=== PATIENT | female | born 1985 | race Caucasian/White ===

== ENCOUNTER 2017-08-15 15:47 | Emergency (ER) | payer BC, OTHER ==
[2017-08-15 16:40] VITALS: BP 149/79
--- NOTE | 2017-08-15 16:41 | ED Physician Documentation ---
Female Urogenital Problems - HISTORIAN Historian: patient, friend - HPI Stated Complaint: abdominal cramping Chief Complaint: Female Urogenital Problems Additional Information: PT HAVING WHAT APPEARS TO BE USUAL MENSES. IT IS HOWEVER 1 WK LATE. SHE ALSO HAD SOME MUCOUS MARY WIPEING WHICH SHE FOUND UNUSUAL. SHE THOUGHT SHE WAS BUT PG TEST WAS NEGATIVE AND SHE IN NOW HAVING WHAT APPEARS NORMAL MENSES. THERE ARE PERHAPS SLIGHTLY GREATER STHAN USUAL CRAMPS Onset: days ago (1) Severity: mild, moderate - Vaginal Bleeding Compared to Menstrual Periods: similiar Where was Test Done: home (NEG) Care: No - Associated Symptoms Urinary Symptoms: denies: blood in urine, frequent urination, discomfort w/ urination Discharge: vaginal discharge (I TIME) - ROS CONST: no problems GI/: denies: nausea, vomiting, decreased appetite CVS/RESP: none EYES/ENT: none NEURO/PSYCH: none MS/SKIN/LYMPH: none - PAST HX Past History: none Surgeries/Procedures: none Allergies/Adverse Reactions: Allergies Allergy/AdvReac Type Severity Reaction Status Date / Time No Known Allergies Allergy Verified 08/15/17 16:11 Home Medications: Ambulatory Orders Medication Instructions Recorded NK [NK] 11/15/12 - SOCIAL HX Smoking History: non-smoker Alcohol Use: none Drug Use: none - FAMILY HX Family History: none - VITAL SIGNS Vital Signs: Vital Signs Temp Pulse Resp BP Pulse Ox 98.8 F 85 18 154/89 98 08/15/17 15:50 08/15/17 15:50 08/15/17 15:50 08/15/17 15:50 08/15/17 15:50 - REVIEWED ASSESSMENTS Nursing Assessment Reviewed: Yes Vitals Reviewed: Yes Female Urogenital Problems - EXAM General Appearance: no acute distress EENT: eye inspection normal Neck: nml inspection Respiratory: no resp. distress, breath sounds nml CVS: reg rate & rhythm Skin: color nml, no rash, warm,dry. No: cyanosis, diaphoresis, pallor Extremities: non-tender, normal range of motion Neuro: oriented X3 Discharge Clincal Impression: DYSMENORRHEA Referrals: Primary Doctor,No [Primary Care Provider] - 2 Days Condition: Good Disposition: 01 HOME, SELF-CARE Decision to Admit: NO Decision Time: 16:44
== END 2017-08-15 16:39 | disposition home or self-care (01) ==
LOC: ED 15:47
DX: N94.6 Dysmenorrhea, unspecified (principal)
CPT/HCPCS: 99283

== ENCOUNTER 2018-08-04 01:03 | Emergency (ER) | payer OTHER ==
[2018-08-04 01:21] VITALS: BP 124/62
--- NOTE | 2018-08-04 01:27 | ED Physician Documentation ---
Foot Injury - HISTORIAN Historian: patient - HPI Stated Complaint: Left foot pain Chief Complaint: Lower Extremity Problem Onset: days ago (4) Where: work Severity: mild Context: other ("stepped wrong" ) Associated Symptoms:: denies: swelling, snapping sensation Modifying Factors:: pain on movement Further Comments: yes (Left foot pain since Tuesday when she "stepped wrong" at work. States this is not a workmans comp injury. She has had progressive pain on the lateral side of the foot since Tuesday. Denies any swelling. She is taking ibuprofen and has some mild help in pain. the pain is a "pain" per her report. She is able to bear weight) - ROS CONST: no problems - PAST HX Past History: none Immunizations: UTD Allergies/Adverse Reactions: Allergies Allergy/AdvReac Type Severity Reaction Status Date / Time No Known Allergies Allergy Verified 08/04/18 01:24 Home Medications: Ambulatory Orders Medication Instructions Recorded NK 08/04/18 - SOCIAL HX Smoking History: cigarettes Alcohol Use: none Drug Use: none - FAMILY HX Family History: none - VITAL SIGNS Vital Signs: Vital Signs Temp Pulse Resp BP Pulse Ox 97.6 F 82 18 124/62 97 08/04/18 01:05 08/04/18 01:05 08/04/18 01:05 08/04/18 01:05 08/04/18 01:05 - REVIEWED ASSESSMENTS Nursing Assessment Reviewed: Yes Vitals Reviewed: Yes ED Results Lab/Radiology - Radiology Radiology Impressions: Left foot, three views History: STEPPED DOWN ONTO LEFT FOOT WRONG 4 DAYS AGO. PAIN ON LATERAL SIDE OF LEFT FOOT. Findings: The osseous structures are intact without acute fracture. There is mil d narrowing of the 1st metatarsophalangeal joint space. There is no focal soft tissue swelling. Impression: 1. No acute osseous abnormality. Electronically signed on Aug 04, 2018 1:37:06 AM CDT by: Anibal Dasilva - Orders Orders: ED Orders Category Date Time Status XRAY FOOT [FOOT 3 VIEWS OR MORE] [RAD] Stat Exams 08/04/18 Ordered Foot Injury Physical Exam - Physical Exam General Appearance: no acute distress, alert Foot: right foot: non-tender, normal inspection, left foot: pain, soft tissue tenderness, bilateral foot: normal range of motion, no evidence of injury, N/A: abrasions/lacerations, bone tenderness, limited range of motion, swelling Ankle: bilateral: non-tender, normal inspection, normal range of motion, no evidence of injury, N/A: abrasions/laceration, bone tenderness, deformity, ecchymosis, joint effusion, limited range of motion, nodules, pain, soft tissue tenderness, swelling, other Gait: normal Neuro: sensation nml, motor nml Vascular: no vascular compromise Tendons: tendon function nml Leg/Knee/Thigh: uninjured above ankle Head/ENT: nml inspection Neck/Back: nml inspection Resp/CVS: chest non-tender, breath sounds nml, heart sounds nml, no resp. distress, lungs clear, reg. rate & rhythm Abdomen: non-tender Discharge Clincal Impression: Left foot pain Referrals: Primary Doctor,No [Primary Care Provider] - 2 Days Additional Instructions: 1. Continue Tylenol and Ibuprofen as directed for pain 2. Follow up with PCP in 2-4 days if no improvement 3. Return to ER for any concerns Condition: Stable Disposition: 01 HOME, SELF-CARE Decision to Admit: NO Date of Decison to Admit: 08/04/18 Decision Time: 01:40
--- NOTE | 2018-08-04 01:58 | Diagnostic Imaging Report ---
EDILSON MONTOYA [facility] [address] [facility] [address] [address] Report Submission Date: Aug 04, 2018 1:37:06 AM CDT Patient Study Name: MELO CHIN Date: Aug 04, 2018 1:20:42 AM CDT Modality Type: DX Gender: F Description: LOWER EXTREMITY : 81 Institution: [facility] Physician: EDILSON MONTOYA Left foot, three views History: STEPPED DOWN ONTO LEFT FOOT WRONG 4 DAYS AGO. PAIN ON LATERAL SIDE OF LEFT FOOT. Findings: The osseous structures are intact without acute fracture. There is mild narrowing of the 1st metatarsophalangeal joint space. There is no focal soft tissue swelling. Impression: 1. No acute osseous abnormality. Electronically signed on Aug 04, 2018 1:37:06 AM CDT by: Anibal BARRERA
== END 2018-08-04 01:45 | disposition home or self-care (01) ==
LOC: ED 01:03
DX: M79.672 Pain in left foot (principal)
CPT/HCPCS: 73630

== ENCOUNTER 2018-08-26 16:44 | Emergency (ER) | payer OTHER ==
[2018-08-26 16:56] VITALS: BP 152/89
--- NOTE | 2018-08-26 17:02 | ED Physician Documentation ---
Sore Throat/Dental Pain - HISTORIAN Historian: patient - HPI Stated Complaint: Dental Pain Chief Complaint: Dental Pain Additional Information: Patient presents to ED with a 2 week history of right upper dental pain and right facial swelling. Patient states she started chilling today so she decided to come to the ED. She states she has a dentist. Onset: days ago (14) Context: Dental Caries, Possible Infection Associated Symptoms: chills Worsened By: cold, other (air) Further Comments: no - ROS CONST: no problems CVS/RESP: denies: chest pain, shortness of breath GI/: denies: nausea, vomiting MS/SKIN/LYMPH: denies: rash NEURO/PSYCH: headache - PAST HX Past History: none Other History: none Allergies/Adverse Reactions: Allergies Allergy/AdvReac Type Severity Reaction Status Date / Time No Known Allergies Allergy Verified 08/26/18 16:55 Home Medications: Ambulatory Orders Medication Instructions Recorded Penicillin V Potassium [Pen V K] 500 mg PO TID #30 tablet 08/26/18 traMADol HCL [Ultram] 50 mg PO TID PRN #15 tablet 08/26/18 - SOCIAL HX Smoking History: cigarettes, greater than 1 pack/day Alcohol Use: none Drug Use: none - FAMILY HX Family History: No - VITAL SIGNS Vital Signs: Vital Signs Temp Pulse Resp BP Pulse Ox 97.4 F L 88 18 152/89 08/26/18 16:45 08/26/18 16:45 08/26/18 16:45 08/26/18 16:45 - REVIEWED ASSESSMENTS Nursing Assessment Reviewed: Yes Vitals Reviewed: Yes Dental Pain Physical Exam - EXAM General Appearance: no acute distress, alert Head/Neck: no lymphadenopathy Eyes: PERRL Mouth/Throat: gum swelling around teeth (right upper molar), other (right side of face swelling) Ear/Nose: nml inspection Respiratory: no resp. distress, breath sounds nml CVS: reg. rate & rhythm, heart sounds nml Abdomen: soft, normal bowel sounds, non-tender Extremities: non-tender Skin: warm/dry Neuro/Psych: none Discharge Clincal Impression: Infected dental caries Prescriptions: Penicillin V Potassium [Pen V K] 500 mg PO TID #30 tablet traMADol HCL [Ultram] 50 mg PO TID PRN #15 tablet PRN Reason: Pain Referrals: Primary Doctor,No [Primary Care Provider] - 2 Days Decision to Admit: NO Date of Decison to Admit: 08/26/18 Decision Time: 17:13
== END 2018-08-26 17:16 ==
LOC: ED 16:44
DX: K02.9 Dental caries, unspecified (principal)

== ENCOUNTER 2019-03-10 23:09 | Emergency (ER) | payer SELFPAY ==
--- NOTE | 2019-03-10 23:24 | ED Physician Documentation ---
General Adult - HISTORIAN Historian: patient - HPI Stated Complaint: confirmation of and white discharge x 2 with voiding today Chief Complaint: Female Urogenital Problems Onset: days ago (2) Timing: still present Severity: mild Further Comments: yes (She states she had her last "normal" period February 01, 2019 and she had "spotting" a few other times and her periods are usually normal. she is sexualy active with one partner. She has had some lower abd cramps on and off - she has no pain with urination. No pain with sex. She states the vaginal discharge started this eveing with voiding and it was " a little white discharge" no itching no pain. no foul odor .) Last known Well Code/Unknown Code: Unknown - ROS CONST: no problems - PAST HX Past History: none Allergies/Adverse Reactions: Allergies Allergy/AdvReac Type Severity Reaction Status Date / Time No Known Allergies Allergy Verified 03/10/19 23:31 Home Medications: Ambulatory Orders Medication Instructions Recorded Penicillin V Potassium [Pen V K] 500 mg PO TID #30 tablet 08/26/18 traMADol HCL [Ultram] 50 mg PO TID PRN #15 tablet 08/26/18 - SOCIAL HX Smoking History: non-smoker Alcohol Use: none Drug Use: none - FAMILY HX Family History: No - VITAL SIGNS Vital Signs: Vital Signs Temp Pulse Resp BP Pulse Ox 152/89 08/26/18 17:15 - REVIEWED ASSESSMENTS Nursing Assessment Reviewed: Yes Vitals Reviewed: Yes General Adult Physical Exam - PHYSICAL EXAM GENERAL APPEARANCE: no distress EENT: eye inspection normal, pharynx normal, no signs of dehydration NECK: normal inspection RESPIRATORY: no resp distress, chest non-tender, breath sounds normal CVS: reg rate & rhythm, heart sounds normal ABDOMEN: soft, normal bowel sounds, no distension, non-tender BACK: normal inspection, no CVA tenderness SKIN: warm/dry EXTREMITIES: non-tender NEURO: oriented X3 Discharge Clincal Impression: Irregular periods/menstrual cycles Referrals: Primary Doctor,No [Primary Care Provider] - 2 Days Comments: 1. Follow up with your OBGYN or PCP on Tuesday for concerns 2. Return to ER for any increasing concerns or bleeding that is not controlled 3. Increase fluids do not take any OTC meds or other items in case of positive Condition: Stable Disposition: 01 HOME, SELF-CARE Decision to Admit: NO Date of Decison to Admit: 03/10/19 Decision Time: 23:51
[2019-03-10 23:52] VITALS: BP 138/92
[2019-03-11 06:59] LABS: COLOR,URINE YELLOW (YELLOW)
[2019-03-11 07:00] LABS: APPEARANCE,URINE CLEAR (CLEAR); OCCULT BLOOD,URINE TRACE-LYSED (NEGATIVE); PH URINE 6.5 (5.0 - 8.0); URINE HCG NEGATIVE (NEGATIVE)
== END 2019-03-10 23:54 | disposition home or self-care (01) ==
LOC: ED 23:09
DX: N92.6 Irregular menstruation, unspecified (principal)
CPT/HCPCS: 81002; 81025; 99282; 99283

== ENCOUNTER 2019-06-30 22:48 | Emergency (ER) | payer SELFPAY ==
--- NOTE | 2019-07-01 00:16 | ED Physician Documentation ---
General Adult - HISTORIAN Historian: patient - HPI Stated Complaint: malaise, abd pain Chief Complaint: General Adult Onset: days ago (1) Timing: still present Severity: moderate Further Comments: yes (Pt is a 33 yo female who says she's "just not feeling well," and that she had abd pain yesterday. Pt had foot reconstuction surgery in the past and has been taking ibuprofen. Yesterday, she accidently took too much ibuprofen. She took 800 mg at 4 hour intervals (for a total of 1600 mg), and then found out that that was too high a dose. She then had some abd pain, which has since resolved, but she thought this might be the reason she's not feeling well. No n/v. No fever.) - ROS CONST: other (malaise) EYES/ENT: none CVS/RESP: none GI/: abdominal pain MS/SKIN/LYMPH: none - PAST HX Past History: other (foot surgery) Allergies/Adverse Reactions: Allergies Allergy/AdvReac Type Severity Reaction Status Date / Time No Known Allergies Allergy Verified 03/10/19 23:31 Home Medications: Ambulatory Orders Medication Instructions Recorded Penicillin V Potassium [Pen V K] 500 mg PO TID #30 tablet 08/26/18 traMADol HCL [Ultram] 50 mg PO TID PRN #15 tablet 08/26/18 - SOCIAL HX Smoking History: cigarettes Alcohol Use: none Drug Use: none - FAMILY HX Family History: No - VITAL SIGNS Vital Signs: Vital Signs Temp Pulse Resp BP Pulse Ox 138/92 03/10/19 23:51 - REVIEWED ASSESSMENTS Nursing Assessment Reviewed: Yes Vitals Reviewed: Yes Progress - Progress Progress: u/a - pos 1+ leuk wbc = 13.2 Rx Nitrofurantoin 100 mg po bid x 7 days. Pt's tel. [phone]. ED Results Lab/Radiology - Orders Orders: ED Orders Category Date Time Status CBC/PLATELET/DIFF Routine Lab 06/30/19 Ordered CMP [CMP] Routine Lab 06/30/19 23:31 Ordered LIPASE Stat Lab 06/30/19 23:31 Ordered URINALYSIS Routine Lab 06/30/19 Ordered General Adult Physical Exam - PHYSICAL EXAM GENERAL APPEARANCE: mild distress EENT: pharynx normal NECK: normal inspection, supple RESPIRATORY: no resp distress, chest non-tender, breath sounds normal CVS: reg rate & rhythm, heart sounds normal ABDOMEN: soft, no organomegaly, normal bowel sounds BACK: normal inspection, no CVA tenderness SKIN: warm/dry, normal color EXTREMITIES: non-tender, normal range of motion, no evidence of injury, no edema NEURO: oriented X3, motor nml, sensation nml Discharge Clincal Impression: UTI (urinary tract infection) Qualifiers: Urinary tract infection type: site unspecified Hematuria presence: without hematuria Qualified Code(s): N39.0 - Urinary tract infection, site not specified Referrals: Primary Doctor,No [Primary Care Provider] - Condition: Stable Disposition: 01 HOME, SELF-CARE Decision to Admit: NO Decision Time: 00:16
[2019-07-01 00:33] LABS: BASOPHILS % 0.5 % (0.0-1.5); NEUTROPHILS # 9.7 # k/uL (1.4-7.7)
[2019-07-01 00:40] LABS: eGFR (Non-African) > 60
[2019-07-01 04:13] VITALS: BP 133/68
[2019-07-01 08:52] LABS: APPEARANCE,URINE CLEAR (CLEAR); COLOR,URINE YELLOW (YELLOW); OCCULT BLOOD,URINE TRACE-INTACT (NEGATIVE); PH URINE 5.5 (5.0 - 8.0); UROBILINOGEN URINE 0.2 Eu (0.2-1.0)
== END 2019-06-30 23:09 | disposition home or self-care (01) ==
LOC: ED 22:48
DX: N39.0 Urinary tract infection, site not specified (principal)
CPT/HCPCS: 80053; 81002; 83690; 85025; 99283; 99284; S1016

== ENCOUNTER 2019-07-23 00:10 | Emergency (ER) | payer SELFPAY ==
--- NOTE | 2019-07-23 00:35 | ED Physician Documentation ---
Abdominal Pain - HISTORIAN Historian: patient - HPI Stated Complaint: LLQ abd pain Chief Complaint: Abdominal Pain Additonal Information: Patient presents to ED with a 2 hour history of LLQ abdominal pain. Patient states she was lying in bed sleeping when she experience a sudden onset of LLQ pain, 8/10, sharp stabbing, nonradiating. She states the pain comes and goes with no apparent reason. Today is her last day of most recent menstral cycle. Last bowel movement was earlier today. She denies fever, cough, shortness of breath, nausea/vomiting or diarrhea. She admits to frequent urination today with no dysuria. Onset: hours (2) Duration: waxing, waning, sudden-onset Timing: still present Context: denies: out of country travel Severity: moderate Quality: sharp, stabbing Associated Symptoms: denies: fever, nausea, vomiting, diarrhea, chest pain Exacerbated by: nothing Relieved by: nothing - ROS CONST: no problems GI/: none CVS/RESP: none EYES/ENT: none MS/SKIN/LYMPH: none NEURO/PSYCH: none - SOCIAL HX Smoking History: cigarettes, greater than 1 pack/day Alcohol Use: none Drug Use: none - FAMILY HX Family History: none - PAST HX Past History: none Ischemic Bowel Risk Factors: none Other History: none Surgeries/Procedures: none Home Medications: Ambulatory Orders Medication Instructions Recorded Ketorolac Tromethamine [Toradol] 10 mg PO Q6H PRN #20 tablet 07/23/19 Tizanidine HCl 4 mg PO Q8 #30 tablet 07/23/19 Allergies/Adverse Reactions: Allergies Allergy/AdvReac Type Severity Reaction Status Date / Time No Known Allergies Allergy Verified 07/23/19 01:00 - VITAL SIGNS Vital Signs: Vital Signs Temp Pulse Resp BP Pulse Ox 97.8 F 88 16 137/75 95 07/23/19 00:30 07/23/19 00:30 07/23/19 00:30 07/23/19 00:30 07/23/19 00:30 - REVIEWED ASSESSMENTS Nursing Assessment Reviewed: Yes Vitals Reviewed: Yes ED Results Lab/Radiology - Lab Results Lab Results: UA - +3 blood, neg leukocytes, neg nitrates. WBC 12.7, Hgb 13.8, Hct 40.8, Plt 272 Sodium 143, Potassium 3.7, Cl 109, Co2 23, BuN 21, Cr 21, Lfts WNL - Radiology Radiology Impressions: Report Submission Date: Jul 23, 2019 1:13:15 AM CDT Patient Study Name: MELO CHIN Date: Jul 23, 2019 12:56:43 AM CDT Modality Type: CT\SR Gender: F Description: CT ABD PELVIS W/O CO : 81 Institution: [facility] Physician: ANGELINA RAMACHANDRAN EXAMINATION: CT ABD PELVIS W/O CO HISTORY: LOWER LEFT SIDED ABD PAIN X 2 HOURS (Hx) / ITS.REASON LLQ abd pain Note time : 07/23/2019 1:08:42 AM User : Aurelio Shankar LOWER LEFT SIDED ABD PAIN (DICOM Hx) (DICOM Hx) TECHNIQUE: CT of the abdomen and pelvis was performed without contrast according to standard protocol. COMPARISON: None FINDINGS: The aorta is normal in caliber. The visible lung bases are clear. The heart size is normal. The liver appears normal. The gallbladder appears normal. The intrahepatic and extrahepatic bile ducts are nondilated. The spleen, pancreas, and adrenal glands appear normal. The kidneys are normal in size. There is no evidence of renal calculus or hydronephrosis. The distal esophagus and stomach appear normal. The small bowel and colon are normal in caliber without evidence of wall thickening or obstruction. The appendix appears normal. No free air or free fluid is identified in the abdomen. There is no abdominal lymphadenopathy. The urinary bladder is nondistended. No free fluid is seen in the pelvis. Bone windows demonstrate no suspicious lytic or blastic lesions. The visible osseous structures are intact. IMPRESSION: 1. No acute process identified in the abdomen or pelvis. Electronically signed on Jul 23, 2019 1:13:15 AM CDT by: - Orders Orders: ED Orders Category Date Time Status Place IV Lock 1T Care 07/23/19 00:[address] ABD & PELVIS W/O CON Stat Exams 07/23/19 Taken CBC/PLATELET/DIFF Routine Lab 07/23/19 00:37 Received CMP [CMP] Routine Lab 07/23/19 00:37 Received UA W/MICRO IF INDICATED Routine Lab 07/23/19 00:42 Ordered 0.9 % Sodium Chloride [Normal Saline] 1,000 ml Med 07/23/19 00:42 Active IV Q1H Ketorolac Tromethamine [Toradol] Med 07/23/19 00:42 Discontinued 30 mg IV NOW ONE Abdominal Pain Physical Exam - Physical Exam General Appearance: no acute distress, alert EENT: EL NECK: supple RESPIRATORY: no resp distress, chest non-tender, breath sounds normal CVS: reg rate & rhythm, heart sounds normal ABDOMEN: soft, tenderness (LLQ) BACK: normal inspection, no CVA tenderness SKIN: warm/dry, normal color EXTREMITIES: non-tender, normal range of motion, no evidence of injury, no edema NEURO: oriented X3, mood/affect nml, cognition normal Vital Signs: Vital Signs Temp Pulse Resp BP Pulse Ox 97.8 F 88 16 137/75 95 07/23/19 00:30 07/23/19 00:30 07/23/19 00:30 07/23/19 00:30 07/23/19 00:30 Discharge Clincal Impression: Musculoskeletal pain Prescriptions: Ketorolac Tromethamine [Toradol] 10 mg PO Q6H PRN #20 tablet PRN Reason: pain Tizanidine HCl 4 mg PO Q8 #30 tablet Referrals: Primary Doctor,No [Primary Care Provider] - 2 Days Additional Instructions: 1. Take Toradol every 6 hours as needed for pain. Do not take Ibuprofen, Motrin, Aleve or Naproxen while taking this medication 2. Take Tizanidine every 8 hours as needed for muscle spasm/pain 3. Drink plenty of water while taking these medications. Target daily water intake; 100 ounces of water 4. Follow up with PCP within 1 week 5. Return to ER for new or worsening symptoms Condition: Stable Disposition: 01 HOME, SELF-CARE Decision to Admit: NO Date of Decison to Admit: 07/23/19 Decision Time: 01:55
[2019-07-23] MEDS ORDERED: 0.9 % SODIUM CHLORIDE 1,000 ML IV ONE (00:42)
[2019-07-23] MEDS ORDERED: KETOROLAC TROMETHAMINE 30 MG/1ML VIAL IV ONE (00:42)
[2019-07-23 03:11] VITALS: BP 136/74
--- NOTE | 2019-07-23 06:32 | Diagnostic Imaging Report ---
ANGELINA RAMACHANDRAN [facility] [address] [facility]. [address] [place], [place]. [address] Report Submission Date: Jul 23, 2019 1:13:15 AM CDT Patient Study Name: MELO CHIN Date: Jul 23, 2019 12:56:43 AM CDT Modality Type: CT\SR Gender: F Description: CT ABD PELVIS W/O CO : 81 Institution: [facility] Physician: ANGELINA RAMACHANDRAN EXAMINATION: CT ABD PELVIS W/O CO HISTORY: LOWER LEFT SIDED ABD PAIN X 2 HOURS (Hx) / ITS.REASON LLQ abd pain Note time : 07/23/2019 1:08:42 AM User : Aurelio Shankar LOWER LEFT SIDED ABD PAIN (DICOM Hx) (DICOM Hx) TECHNIQUE: CT of the abdomen and pelvis was performed without contrast according to standard protocol. COMPARISON: None FINDINGS: The aorta is normal in caliber. The visible lung bases are clear. The heart size is normal. The liver appears normal. The gallbladder appears normal. The intrahepatic and extrahepatic bile ducts are nondilated. The spleen, pancreas, and adrenal glands appear normal. The kidneys are normal in size. There is no evidence of renal calculus or hydronephrosis. The distal esophagus and stomach appear normal. The small bowel and colon are normal in caliber without evidence of wall thickening or obstruction. The appendix appears normal. No free air or free fluid is identified in the abdomen. There is no abdominal lymphadenopathy. The urinary bladder is nondistended. No free fluid is seen in the pelvis. Bone windows demonstrate no suspicious lytic or blastic lesions. The visible osseous structures are intact. IMPRESSION: 1. No acute process identified in the abdomen or pelvis. Electronically signed on Jul 23, 2019 1:13:15 AM CDT by: David BARRERA
[2019-07-23 09:27] LABS: BASOPHILS % 0.6 % (0.0-1.5); NEUTROPHILS # 9.4 # k/uL (1.4-7.7); eGFR (Non-African) > 60
== END 2019-07-23 02:10 | disposition home or self-care (01) ==
LOC: ED 00:10
DX: M79.18 Myalgia, other site (principal); F17.210 Nicotine dependence, cigarettes, uncomplicated
CPT/HCPCS: 74176; 80053; 85025; 96361; 96374; 99284; J1885; J7030; S1016